=== PATIENT | male | born 1955 | race Caucasian/White ===

== ENCOUNTER 2017-10-17 07:29 | Day surgery (SDC) | payer BC ==
[~2017-10-17 07:29] MED LIST: Buffered Lidocaine 0.9% SYRIN* 5 ML/SYR SYRINGE INTRADERM ONE; Famotidine IV* 10 MG/ML 2 ML (20 mg) IV ONE; Metoclopramide TAB* 10 MG PO ONE
[2017-10-17] MEDS ORDERED: Famotidine IV* 10 MG/ML 2 ML (20 mg) ONE (07:53)
[2017-10-17] MEDS ORDERED: cefTRIAXone(*) 2 GM ADDV.VIAL IVPB ONE (07:54)
[2017-10-17] MEDS ORDERED: Buffered Lidocaine 0.9% SYRIN* 5 ML/SYR SYRINGE ONE (07:54)
[2017-10-17] MEDS ORDERED: Metoclopramide TAB* 10 MG ONE (07:54)
--- NOTE | 2017-10-17 08:24 | RAD ---
Indication: Shock wave lithotripsy, bilateral renal calculus. Single view of the abdomen demonstrates large calculi overlying both kidneys. Bilateral ureteral stents are in place. IMPRESSION: Large bilateral renal calculi with bilateral stents in place.
[2017-10-17] MEDS ORDERED: Midazolam* 1 MG/ML 5 ML VIAL (5 MG) ONE (08:29)
[2017-10-17] MEDS ORDERED: fentaNYL* 50 MCG/ML 2 ML VIAL (100 MCG VIAL) ONE (08:29)
[2017-10-17] MEDS ORDERED: Ondansetron INJ* 2 MG/ML VIAL ONE (08:29)
[2017-10-17] MEDS ORDERED: Ketorolac INJ* 30 MG/ML 1 ML VIAL ONE (08:29)
[2017-10-17] MEDS ORDERED: Propofol* 10 MG/ML 20 ML BTL IV PUSH ONE (08:29)
[2017-10-17] MEDS ORDERED: Lidocaine 2% PF * 5 ML VIAL ONE (08:29)
[2017-10-17] MEDS ORDERED: KETAMINE HCL* 50 MG/ML 10 ML VIAL ONE (08:29)
[2017-10-17] MEDS ORDERED: Dexamethasone IV* 4 MG/ML 1 ML (4 MG) ONE (08:29)
[2017-10-17] MEDS ORDERED: Furosemide IV* 10 MG/ML 2 ML VIAL (20 MG) ONE (09:31)
[2017-10-17] MEDS ORDERED: fentaNYL* 50 MCG/ML 2 ML VIAL (100 MCG VIAL) IV PRN (09:34)
[2017-10-17] MEDS ORDERED: Ondansetron INJ* 2 MG/ML VIAL IV PRN (09:34)
[2017-10-17] MEDS ORDERED: oxyCODONE/Acetamin 5/325 MG* TAB PO PRN (09:34)
[2017-10-17 10:45] VITALS: BP 120/69
--- NOTE | 2017-10-17 14:15 | RAD ---
Indication: Post bilateral lithotripsy. RIGHT side today. Comparison: 0745 hours exam of the same date. Technique: Supine view of the abdomen. Report: Unremarkable bowel gas pattern. Moderate stool in the colon without significant rectal distension. Large RIGHT kidney inferior pole calcification appears fragmented compared with the earlier exam of the same date. No significant change in large LEFT lower pole renal stone or adjacent smaller stones. Bilateral ureteral stents in place. Unremarkable soft tissue contours. IMPRESSION: Large RIGHT kidney inferior pole calcification appears fragmented compared with the earlier exam of the same date. No significant change in large LEFT lower pole renal stone or adjacent smaller stones. Bilateral ureteral stents in place.
--- NOTE | 2017-10-17 22:58 | OP ---
DATE OF OPERATION: 10/17/17 - [facility] DATE OF : 51 SURGEON: Bernabe Morrissey MD ANESTHESIOLOGIST: Abhishek Clark MD ANESTHESIA: General. PRE-OP DIAGNOSIS: Bilateral renal calculi. POST-OP DIAGNOSIS: Bilateral renal calculi. OPERATIVE PROCEDURE: Shock wave lithotripsy of right renal calculus. INDICATIONS: Chidi Kim is a 62-year-old gentleman, who had been transferred from [facility] because of large bilateral obstructing renal calculi. He had undergone bilateral stent insertion and is now being brought in for shock wave lithotripsy of the right renal calculus. Both calculi are very large and I have explained to him that he will require multiple procedures in an effort to try and render him stone free and I have also discussed the alternative of percutaneous nephrolithotripsy, particularly for the left-sided calculus. He is now being brought in for treatment of the right-sided calculus with shock wave lithotripsy. COMPLICATIONS: None. POSTOPERATIVE CONDITION: Stable. DESCRIPTION OF PROCEDURE: After induction of general anesthesia, the patient was placed on the lithotripsy table in supine position. The calculus, which was in the renal pelvis, was localized using fluoroscopy. Shock wave lithotripsy was commenced at a rate of 60 shocks per minute. After the initial 300 initial shocks, there was a pause in lithotripsy for several minutes in an effort to minimize any potential trauma to the kidney. Lithotripsy was then resumed and periodic imaging revealed good localization. A total of 2400 shocks were administered. The patient tolerated the procedure satisfactorily and was transferred back to recovery area in stable condition. My plan is to obtain postoperative x-ray and then decide when to bring him back for the second procedure, which could very well be a ureteroscopy with laser lithotripsy and stent exchange. [id number]/[facility] #: [id number] MTDD
== END 2017-10-17 11:28 | disposition home or self-care (01) ==
LOC: OR 07:29
PROVIDERS: ATTEND Urology
DX: N13.2 Hydronephrosis with renal and ureteral calculous obstruction (principal); Z96.0 Presence of urogenital implants; E11.9 Type 2 diabetes mellitus without complications; Z79.84 Long term (current) use of oral hypoglycemic drugs; I10 Essential (primary) hypertension; Z79.82 Long term (current) use of aspirin; Z84.1 Family history of disorders of kidney and ureter; N39.0 Urinary tract infection, site not specified; N40.0 Benign prostatic hyperplasia without lower urinary tract symptoms
CPT/HCPCS: 74000; A9270-GY; J0696; J1100; J1885; J1940; J2250; J2405; J2704; J3010

== ENCOUNTER 2017-11-30 07:02 | Day surgery (SDC) | payer BC ==
--- NOTE | 2017-11-01 07:49 | HP ---
CC: Sejal Pete * ADMISSION HISTORY AND PHYSICAL: DATE OF ADMISSION: 11/14/17 ADMITTING DIAGNOSIS: Bilateral renal calculi. PLANNED PROCEDURE: Shockwave lithotripsy of left renal calculi. SURGEON: Bernabe Morrissey MD HISTORY OF PRESENT ILLNESS: Chidi Kim is a 62-year-old gentleman who was urgently evaluated and transferred to [place] on 10/02/17 for bilateral large obstructing renal calculi. He underwent bilateral stent insertion and then on 10/17/17, underwent shock wave lithotripsy of a large right renal calculus. My initial plan had been to refer him to [facility] for percutaneous nephrolithotripsy of the left renal calculus and I have discussed this with him on a couple of occasions. Because of the good degree of fragmentation noted after the right lithotripsy, he would like to try the lithotripsy for the left renal calculus and I have explained to him that because of the large size of the calculus at the very least he may require multiple procedures including lithotripsy and laser. He is now being brought in for shockwave lithotripsy of the left renal calculus. PAST MEDICAL HISTORY: Significant for: 1. Diabetes. 2. Hypertension. 3. Hyperlipidemia. MEDICATIONS: On admission: 1. Glucotrol 2.5 mg oral twice a day. 2. Atorvastatin 20 mg daily. 3. Flomax 0.4 mg daily. 4. Actos 15 mg daily. 5. Lisinopril 5 mg daily. 6. Glucophage 1000 mg b.i.d. ALLERGIES: No known drug allergies. PHYSICAL EXAMINATION GENERAL: Revealed a pleasant, healthy-appearing middle aged gentleman. VITAL SIGNS: Blood pressure is 150/80, pulse 80 per minute. CARDIOVASCULAR: Regular rate and rhythm. S1, S2. No murmurs. LUNGS: Clear bilaterally. ABDOMEN: Soft with bilateral mild flank tenderness. IMPRESSION: A 62-year-old gentleman with large bilateral renal calculi who has bilateral stents in place. Planned procedure is shockwave lithotripsy of left renal calculus. I have discussed the procedure in detail including possible risks of bleeding infection, incomplete fragmentation, possible injury to the kidney and certainly also of the need for possible multiple procedures and also alternative of percutaneous nephrolithotripsy. PLAN: Shockwave lithotripsy of left renal calculus. [id number]/[facility] #: [id number] MTDD
[~2017-11-30 07:02] MED LIST changes: -Metoclopramide TAB* 10 MG PO ONE
[2017-11-30] MEDS ORDERED: Famotidine IV* 10 MG/ML 2 ML (20 mg) ONE (08:03)
[2017-11-30] MEDS ORDERED: Buffered Lidocaine 0.9% SYRIN* 5 ML/SYR SYRINGE ONE (08:03)
[2017-11-30] MEDS ORDERED: cefTRIAXone(*) 2 GM ADDV.VIAL IVPB ONE (08:03)
--- NOTE | 2017-11-30 08:33 | RAD ---
Indication: Lithotripsy. Single view of the abdomen demonstrates bilateral ureteral stents in place. Calcifications overlying the lower pole of the left kidney is noted. IMPRESSION: Calcifications overlying the lower pole of the left kidney. Bilateral ureteral stents are noted.
[2017-11-30] MEDS ORDERED: oxyCODONE/Acetamin 5/325 MG* TAB PO PRN (08:58)
[2017-11-30] MEDS ORDERED: PROCHLORPERAZINE INJ 5 MG/ML 2 ML VIAL IV PRN (08:58)
[2017-11-30] MEDS ORDERED: fentaNYL* 50 MCG/ML 2 ML VIAL (100 MCG VIAL) IV PRN (08:58)
[2017-11-30] MEDS ORDERED: HYDROcodone/ACETAMIN 5-325 MG* 1 TAB PO PRN (08:58)
[2017-11-30] MEDS ORDERED: Propofol* 10 MG/ML 20 ML BTL IV PUSH ONE (09:15)
[2017-11-30] MEDS ORDERED: Lidocaine 2% PF * 5 ML VIAL ONE (09:15)
[2017-11-30] MEDS ORDERED: fentaNYL* 50 MCG/ML 2 ML VIAL (100 MCG VIAL) ONE (09:16)
[2017-11-30] MEDS ORDERED: Ondansetron INJ* 2 MG/ML VIAL ONE (09:51)
[2017-11-30] MEDS ORDERED: EPHEDrine (Pressors)* 50 MG/ML VIAL ONE (10:00)
[2017-11-30] MEDS ORDERED: Furosemide IV* 10 MG/ML 2 ML VIAL (20 MG) ONE (10:14)
[2017-11-30 11:18] VITALS: BP 117/62
--- NOTE | 2017-11-30 12:44 | OP ---
DATE OF OPERATION: 11/30/17 - [facility] DATE OF : 51 SURGEON: Bernabe Morrissey MD ANESTHESIOLOGIST: Fito Shahid MD ANESTHESIA: General. PRE-OP DIAGNOSIS: Left renal calculus. POST-OP DIAGNOSIS: Left renal calculus. OPERATIVE PROCEDURE: Shock wave lithotripsy of left renal calculus. INDICATIONS: Chidi Kim is a 62-year-old gentleman who had been evaluated for bilateral large obstructing calculi. He had undergone bilateral stent insertion followed by successful treatment of large right renal calculus. He is now being brought in for shock wave lithotripsy of a large left renal calculus. I have discussed the procedure and possible alternatives including percutaneous nephrolithotripsy and ureteroscopy with laser lithotripsy. I have also discussed the need for possible additional procedures given the very large size of the calculus. COMPLICATIONS: None. POSTOPERATIVE CONDITION: Stable. DESCRIPTION OF PROCEDURE: After induction of general anesthesia, the patient was placed on the lithotripsy table in supine position. Sequential compression devices were in place and functioning. The calculus in the [id number]-[id number] pole area of the left kidney was localized under fluoroscopy. Shock wave lithotripsy was commenced at a rate of 90 shocks per minute. After the initial 300 shocks, there was a pause in lithotripsy for several minutes to minimize any potential trauma to the kidney. Lithotripsy was then resumed and a total of 2400 shocks were administered with periodic fluoroscopy to make sure that localization was still accurate, which it was. The patient tolerated the procedure satisfactorily and was transferred back to the recovery area in stable condition. [id number]/[facility] #: [id number] [facility]
--- NOTE | 2017-11-30 13:20 | RAD ---
INDICATION: Postop lithotripsy. COMPARISON: Comparison is made with a prior KUB films from approximately 5 hours earlier. TECHNIQUE: Frontal supine films of the abdomen were obtained. FINDINGS: The small bowel and colon appear nondistended. There are bilateral double-J stent catheters present. The large calculus present in the lower pole of the left kidney has been fragmented. There are multiple calculi fragments present. IMPRESSION: STATUS POST LITHOTRIPSY LEFT RENAL CALCULUS.
== END 2017-11-30 11:57 | disposition home or self-care (01) ==
LOC: OR 07:02
PROVIDERS: ATTEND Urology
DX: N20.0 Calculus of kidney (principal); E11.9 Type 2 diabetes mellitus without complications; Z79.84 Long term (current) use of oral hypoglycemic drugs; I10 Essential (primary) hypertension; E78.5 Hyperlipidemia, unspecified; D64.9 Anemia, unspecified
CPT/HCPCS: 74018; J0696; J1940; J2405; J2704; J3010

== ENCOUNTER 2018-01-02 06:24 | Day surgery (SDC) | payer BC ==
--- NOTE | 2017-12-16 07:41 | HP ---
CC: Dr. Avelar * ADMITTING HISTORY AND PHYSICAL: DATE OF ADMISSION: 01/02/18 ADMITTING DIAGNOSES: 1. Left renal calculi (partial staghorn). 2. Left hydronephrosis. PLANNED PROCEDURE: Left ureteroscopy, pyeloscopy, laser lithotripsy, and stent replacement. SURGEON: Bernabe Morrissey MD HISTORY OF PRESENT ILLNESS: Chidi Kim is a 62-year-old gentleman who had been evaluated in September 2017 for large obstructing calculi in the right and left kidneys. He had originally undergone bilateral stent insertion and had successfully undergone lithotripsy for treatment of a large right renal calculus with excellent results. He also had undergone lithotripsy for treatment of a very large left renal calculus with partial fragmentation and is now being brought in for ureteroscopy, pyeloscopy, and laser lithotripsy. I have explained to him that because of the very large size of the calculus, he will probably require an additional procedure, probably shockwave lithotripsy sometime in the next few months also. PAST MEDICAL HISTORY: Significant for: 1. Bilateral renal calculi. 2. Hypertension. 3. Diabetes mellitus. 4. Hyperlipidemia. MEDICATIONS ON ADMISSION: 1. Flomax 0.4 mg once a day. 2. Atorvastatin 20 mg daily. 3. Glucotrol 2.5 mg b.i.d. 4. Lisinopril 5 mg once a day. 5. Actos 15 mg once a day. 6. Glucophage 1000 mg twice a day. ALLERGIES: SULFA. PHYSICAL EXAMINATION GENERAL: Reveals a pleasant middle-aged gentleman. VITAL SIGNS: Blood pressure is 110/70, pulse 90 per minute and regular, temperature 97.1, oxygen saturation 98% on room air. LUNGS: Clear bilaterally. CARDIOVASCULAR: Regular rate and rhythm. S1, S2. ABDOMEN: Soft with mild left flank tenderness. IMPRESSION: A 62-year-old gentleman with partial fragmentation of a very large left renal calculus and mild left hydronephrosis. Planned procedure is left ureteroscopy, pyeloscopy, laser lithotripsy, and left stent replacement ( possibly to be followed in the near future by repeat shockwave lithotripsy). [id number]/[facility] #: [id number] MTDD
[~2018-01-02 06:24] MED LIST changes: +Gentamicin ADULT (*) 160 MG in NS 0.9% 100 ML* 100 ML IVPB ONE; +Lidocaine 2% PF * 5 ML VIAL ONE; +Midazolam* 1 MG/ML 2 ML VIAL (2 MG) ONE; +Propofol* 10 MG/ML 20 ML BTL IV PUSH ONE; +Sodium Citrate/Citric Acid* 15 ML UDC PO ONE; +fentaNYL* 50 MCG/ML 2 ML VIAL (100 MCG VIAL) ONE
[2018-01-02] MEDS ORDERED: Sodium Citrate/Citric Acid* 15 ML UDC ONE (06:26)
[2018-01-02] MEDS ORDERED: cefTRIAXone(*) 2 GM ADDV.VIAL IVPB ONE (06:26)
[2018-01-02] MEDS ORDERED: Buffered Lidocaine 0.9% SYRIN* 5 ML/SYR SYRINGE ONE (06:26)
[2018-01-02] MEDS ORDERED: Famotidine IV* 10 MG/ML 2 ML (20 mg) ONE (06:26)
[2018-01-02] MEDS ORDERED: Iohexol 180 (CONTRAST) 10 ML SDV IV ONE (07:33)
[2018-01-02] MEDS ORDERED: Iohexol 300 (CONTRAST) 100 ML SDV IV ONE (07:33)
[2018-01-02] MEDS ORDERED: HYDROmorphone INJ* 1 MG/ML CARPUJECT SYRINGE IV PRN (08:04)
[2018-01-02] MEDS ORDERED: fentaNYL* 50 MCG/ML 2 ML VIAL (100 MCG VIAL) IV PRN (08:04)
[2018-01-02] MEDS ORDERED: oxyCODONE/Acetamin 5/325 MG* TAB PO PRN (08:04)
[2018-01-02] MEDS ORDERED: Naloxone* 0.4 MG/ML 1 ML VIAL IV PRN (08:04)
[2018-01-02] MEDS ORDERED: Ondansetron INJ* 2 MG/ML VIAL IV PRN (08:04)
[2018-01-02] MEDS ORDERED: Ondansetron INJ* 2 MG/ML VIAL ONE (08:26)
[2018-01-02] MEDS ORDERED: EPHEDrine (Pressors)* 50 MG/ML VIAL ONE (08:26)
[2018-01-02] MEDS ORDERED: Propofol* 10 MG/ML 20 ML BTL IV PUSH ONE (08:56)
[2018-01-02] MEDS ORDERED: fentaNYL* 50 MCG/ML 2 ML VIAL (100 MCG VIAL) ONE (08:56)
--- NOTE | 2018-01-02 09:46 | RAD ---
INDICATION: Left ureteral stent placement COMPARISON: December 14, 2017 FINDINGS: 4 seconds of fluoroscopy were provided for the urology department. Fluoroscopic spot imaging of the abdomen were obtained for operative control and show a retrograde examination correlating and left ureteral stent placement . CPT II Codes: 6045F (fluoro time doc)
[2018-01-02 10:21] VITALS: BP 131/67
--- NOTE | 2018-01-02 12:29 | RAD ---
INDICATION: Left-sided nephrolithiasis COMPARISON: December 14, 2017 TECHNIQUE: A single view of the abdomen is submitted. FINDINGS: Bones: There are no acute bony findings. Soft tissues: The soft tissues appear normal. The psoas margins are sharp. Bowel gas pattern: Normal Calcifications: There is a fragmented left renal calculus. Essentially unchanged. In addition to the coalescent group in the lower pole, there are calcifications projecting over the proximal coil of the stent, unchanged. Other: There is a left ureteral stent in expected position. IMPRESSION: FRAGMENTED LEFT RENAL CALCULI
--- NOTE | 2018-01-02 22:54 | OP ---
DATE OF OPERATION: 01/02/18 - [facility] DATE OF : 51 SURGEON: Bernabe Morrissey MD ANESTHESIOLOGIST: Dr. Mcmahan. ANESTHESIA: General. PRE-OP DIAGNOSES: 1. Left renal calculi. 2. Left hydronephrosis. POST-OP DIAGNOSES: 1. Left renal calculi. 2. Left hydronephrosis. OPERATIVE PROCEDURE: Cystoscopy, left stent removal, left retrograde pyelogram , left ureteroscopy, left pyeloscopy, laser lithotripsy of left renal calculus, and left stent insertion. COMPLICATIONS: None. STENT USED: An 8.5-Taiwanese 28-cm silicone stent left ureter. INDICATION: Chidi Kim is a 62-year-old gentleman who had been evaluated with bilateral partial staghorn calculi and bilateral hydronephrosis. He had undergone earlier treatment with lithotripsy and is now being brought in for pyeloscopy and laser lithotripsy in an effort to further break up the large left renal calculi. OPERATIVE FINDINGS: Multiple left renal calculi and left hydronephrosis. DESCRIPTION OF PROCEDURE: After induction of general anesthesia, the patient was placed in dorsal lithotomy position. Sequential compression devices were in place and functioning. Initial cystoscopy revealed a normal-appearing urethra, a markedly large prostate. The bladder was examined and the previously placed stent was removed. Left retrograde pyelogram revealed left hydronephrosis. A 6-Taiwanese semi-rigid ureteroscope was introduced and advanced under direct vision. The entire distal mid and proximal ureter were visualized. The ureteroscope was then advanced into the renal pelvis and pyeloscopy was performed. Multiple clusters of calculi were noted and using a 550 micron holmium laser, these were successfully broken up into multiple smaller fragments. Several of the fragments were removed and sent for analysis. Given the fact that I was working within the kidney, I did not attempt to remove all of the fragments manually, but tried to break them up into small enough pieces. It is possible that the patient may require another session of shockwave lithotripsy for cluster in the lower pole. At the end of the procedure, an 8.5-Taiwanese 28 cm silicone stent was introduced and positioned under fluoroscopy with good proximal and distal positioning obtained. The bladder was emptied. The patient tolerated the procedure satisfactorily and was transferred back to the recovery area in stable condition. [id number]/[facility] #: [id number] [facility]
== END 2018-01-02 11:00 | disposition home or self-care (01) ==
LOC: OR 06:24
PROVIDERS: ATTEND Urology
DX: N13.2 Hydronephrosis with renal and ureteral calculous obstruction (principal); I10 Essential (primary) hypertension; E78.5 Hyperlipidemia, unspecified; E11.9 Type 2 diabetes mellitus without complications; Z79.84 Long term (current) use of oral hypoglycemic drugs; M19.90 Unspecified osteoarthritis, unspecified site; D64.9 Anemia, unspecified
CPT/HCPCS: 74018; 74420; 82365; 88300; A9270-GY; C1876; J0696; J1580; J2250; J2405; J2704; J3010

== ENCOUNTER → 2018-08-21 06:02 | Day surgery (SDC) | payer MEDICARE ==
--- NOTE | 2018-08-14 21:43 | HP ---
ADMITTING HISTORY AND PHYSICAL: DATE OF ADMISSION: 08/21/18 ADMITTING DIAGNOSIS: Left renal calculi. PLANNED PROCEDURE: Shock wave lithotripsy, left renal calculi. SURGEON: Dr. Morrissey. HISTORY OF PRESENT ILLNESS: Chidi Kim is a 63-year-old gentleman who had initially been evaluated for large bilateral renal calculi. He has undergone several previous procedures including laser lithotripsy and shock wave lithotripsy with reasonably good fragmentation of calculi. He still has some residual left- sided stones and would like to try and have those cleared up and is now being brought in for repeat shock wave lithotripsy of left renal calculi. PAST MEDICAL HISTORY: Significant for: 1. Recurrent renal calculi. 2. Diabetes mellitus. 3. Hypertension. 4. Hyperlipidemia. MEDICATIONS ON ADMISSION: 1. Glucotrol 2.5 mg b.i.d. 2. Atorvastatin 20 mg once daily. 3. Flomax 0.4 mg daily. 4. Lisinopril 5 mg once a day. 5. Actos 15 mg daily. 6. Glucophage 1000 mg twice a day. ALLERGIES AND INTOLERANCES: SULFA. REVIEW OF SYSTEMS: He is otherwise in excellent health. There is no history of diabetes mellitus or any other major systemic illness. PHYSICAL EXAMINATION GENERAL: Reveals a pleasant healthy appearing middle-aged gentleman. VITAL SIGNS: Blood pressure is 110/70, pulse 70 per minute, regular, oxygen saturation 97% on room air. LUNGS: Clear bilaterally. CARDIOVASCULAR EXAM: Regular rate and rhythm. S1, S2. ABDOMEN: Soft with mild left flank tenderness. IMPRESSION: A 63-year-old gentleman with multiple bilateral renal calculi who has successfully undergone treatment of right-sided and previously also of left- sided calculi. PLAN: Plan is for shock wave lithotripsy, left renal calculi. [id number]/[facility] #: [id number] [facility]
[~2018-08-21 06:02] MED LIST changes: +Acetaminophen TAB* 325 MG PO PRN; +Dexamethasone IV* 4 MG/ML 1 ML (4 MG) ONE; +DiMENhydriNATE IV* 50 MG/ML VIAL IV PUSH PRN; +Famotidine IV* 10 MG/ML 2 ML (20 mg) ONE; +Furosemide IV* 10 MG/ML 2 ML VIAL (20 MG) ONE; -Gentamicin ADULT (*) 160 MG in NS 0.9% 100 ML* 100 ML IVPB ONE; +HYDROmorphone INJ1* 1 MG/ML SYRINGE IV PRN; +Iohexol 180 (CONTRAST) 10 ML SDV IV ONE; +Ketorolac INJ* 30 MG/ML 1 ML VIAL ONE; -Midazolam* 1 MG/ML 2 ML VIAL (2 MG) ONE; +Midazolam* 1 MG/ML 5 ML VIAL (5 MG) ONE; +Naloxone* 0.4 MG/ML 1 ML VIAL IV PRN; +Ondansetron INJ* 2 MG/ML VIAL ONE; -Sodium Citrate/Citric Acid* 15 ML UDC PO ONE; +cefTRIAXone(*) 2 GM ADDV.VIAL IVPB ONE; +oxyCODONE TAB* 5 MG TAB PO PRN
--- NOTE | 2018-08-21 08:13 | RAD ---
INDICATION: Left renal calculus COMPARISON: Most recent comparison KUB is dated August 02, 2018 TECHNIQUE: 2 views the abdomen were obtained. FINDINGS: At the right lower pole collecting system there are at least 3 renal calculi measuring 3 to 4 mm a piece. At the left lower pole collecting system there is an irregular conglomeration of stones with a maximum dimension of 1.1 cm slightly reduced from the previous KUB. There are no large calcifications overlying the expected course of either ureter or the urinary bladder. IMPRESSION:RENAL CALCULI OVERLYING THE BILATERAL COLLECTING SYSTEMS DESCRIBED ABOVE.
[2018-08-21 09:35] VITALS: BP 141/83
--- NOTE | 2018-08-21 12:04 | OP ---
DATE OF OPERATION: 08/21/18 - [facility] DATE OF : 51 SURGEON: Bernabe Morrissey MD ANESTHESIOLOGIST: Dr. Thompson. ANESTHESIA: General. PRE-OP DIAGNOSIS: Left renal calculi. POST-OP DIAGNOSIS: Left renal calculi. OPERATIVE PROCEDURE: Shock wave lithotripsy, left renal calculi. COMPLICATIONS: None. POSTOPERATIVE CONDITION: Stable. INDICATIONS: Chidi Kim is a 63-year-old gentleman who had initially presented with large bilateral obstructing renal calculi. He had previously undergone treatment for left renal calculi on several occasions and is now being brought in for shock wave lithotripsy in an attempt to try to completely fragment the calculi. DESCRIPTION OF PROCEDURE: After induction of general anesthesia, the patient was placed on lithotripsy table in supine position. A cluster of calculi in the lower pole of the left kidney was identified and shock wave lithotripsy was commenced at a rate of 60 shocks per minute. After the initial 300 shocks, there was a pause in lithotripsy for several minutes in an effort to minimize any potential trauma to the kidney. Lithotripsy was then resumed and periodic imaging revealed good localization and fragmentation. A total of 2400 shocks were administered. The patient tolerated the procedure satisfactorily and was transferred back to the recovery area in stable condition. [id number]/[facility] #: [id number] MTDD
== END | disposition home or self-care (01) ==
LOC: OR 06:02
PROVIDERS: ATTEND Urology
DX: N20.0 Calculus of kidney (principal); E11.9 Type 2 diabetes mellitus without complications; Z79.84 Long term (current) use of oral hypoglycemic drugs; I10 Essential (primary) hypertension; E78.5 Hyperlipidemia, unspecified
CPT/HCPCS: 74018; J0696; J1100; J1885; J1940; J2250; J2405; J2704; J3010